=== PATIENT | female | born 1955 | race Caucasian/White ===

== ENCOUNTER 2020-07-21 04:27 | Emergency (ER) | payer OTHER ==
[2020-07-21 04:34] VITALS: BMI 23.1
[2020-07-21] MEDS ORDERED: ASPIRIN 81 MG CHEWABLE TABLETS PO ONE (04:38)
[2020-07-21] MEDS ORDERED: HEPARIN NA (PORCINE) 5,000 UNITS/ML 1ML VIAL IVPUSH PRN (04:50)
[2020-07-21 04:56] VITALS: TEMP 98.9
[2020-07-21] MEDS ORDERED: HEPARIN NA (PORCINE) 5,000 UNITS/ML 1ML VIAL IVPUSH ONE (04:56)
[2020-07-21] MEDS ORDERED: ASPIRIN COATED 81 MG TABLET.EC ONE (04:58)
[2020-07-21] MEDS ORDERED: HEPARIN NA (PORCINE) 5,000 UNITS/ML 1ML VIAL ONE (04:58)
[2020-07-21] MEDS ORDERED: TICAGRELOR 90 MG TABLET PO ONE ×3 (04:58→05:06)
[2020-07-21] MEDS ORDERED: HEPARIN INFUSION - 25,000 UNITS/500 ML INFUS.BAG IVPB ONE (04:59)
[2020-07-21] MEDS ORDERED: HEPARIN INFUSION - 25,000 UNITS/500 ML INFUS.BAG IVPB SCH (05:00)
[2020-07-21 05:24] VITALS: BP 170/88; PULSE 64
[2020-07-21] MEDS ORDERED: ONDANSETRON 4 MG/2 ML VIAL ONE (05:34)
[2020-07-21] MEDS ORDERED: ONDANSETRON 4 MG/2 ML VIAL IVPUSH ONE (05:34)
[2020-07-21 05:52] LABS: POTASSIUM 3.6 mmol/L (3.5-5.1)
[2020-07-21 05:56] LABS: ALBUMIN 4.1 g/dl (3.4-5.0); CALCIUM 9.1 mg/dL (8.5-10.1)
[2020-07-21 05:57] LABS: BLOOD UREA NITROGEN 14.4 mg/dL (7-18)
[2020-07-21 05:59] LABS: CREATININE 0.8 mg/dL (0.55-1.3)
[2020-07-21 06:01] LABS: BILIRUBIN,TOTAL 0.6 mg/dL (0.2-1); TOT PROT 7.3 g/dl (6.4-8.2)
[2020-07-21 06:38] LABS: BASO % 0.4 % (0-2.0); EOS % 0.3 % (0-4.5); HEMATOCRIT 43.8 % (32.4-45.2); HEMOGLOBIN 14.6 GM/dL (10.7-15.3); LYMPH % 15.1 % (8-40); MCH 28.2 pg (25.7-33.7); MCHC 33.4 g/dl (32.0-36.0); MEAN CELL VOLUME 84.3 fl (80-96); MEAN PLT VOLUME 8.8 fl (7.5-11.1); MONO % 5.4 % (3.8-10.2); NEUT % 78.8 % (42.8-82.8); PLATELET COUNT 337 K/MM3 (134-434); RDW 14.4 % (11.6-15.6); WHITE BLOOD COUNT 13.4 K/mm3 (4.0-10.0)
[2020-07-21] MEDS ORDERED: TICAGRELOR 90 MG TABLET PO SCH (10:00)
== END 2020-07-21 05:35 | disposition short-term general hospital (02) ==
LOC: FER 04:27
PROC: 3E033NZ Introduction of Analgesics, Hypnotics, Sedatives into Peripheral Vein, Percutaneous Approach (ICD-10-PCS; principal; 2020-07-21)
PROC: 3E033GC Introduction of Other Therapeutic Substance into Peripheral Vein, Percutaneous Approach (ICD-10-PCS; 2020-07-21)
DX: I21.3 ST elevation (STEMI) myocardial infarction of unspecified site (principal)
CPT/HCPCS: 36415; 71045-TC-FY; 80053; 82550; 84484; 85025; 93005; 99285-25; C9803; J1644; U0003

== ENCOUNTER 2022-12-09 11:44 | Emergency (ER) | payer OTHER ==
[2022-12-09 11:50] VITALS: TEMP 98.7; BMI 23.1
[2022-12-09 12:32] LABS: HEMATOCRIT 39.2 % (32.4-45.2); HEMOGLOBIN 13.3 G/dL (10.7-15.3); MCH 29.3 pg (25.7-33.7); MCHC 33.9 g/dl (32.0-36.0); MEAN CELL VOLUME 86.5 fl (80-96); MEAN PLT VOLUME 8.5 fl (7.5-11.1); PLATELET COUNT 291.6 10^3/uL (134-434); RBC 4.53 10^6/uL (3.60-5.2); RDW 14.6 % (11.6-15.6); WHITE BLOOD COUNT 13.7 10^3/uL (4.0-10.8)
[2022-12-09 12:47] LABS: ALBUMIN 4.2 g/dl (3.4-5.0); BILIRUBIN,TOTAL 0.4 mg/dl (0.2-1); BLOOD UREA NITROGEN 12.8 mg/dl (7-18); CALCIUM 9.3 mg/dl (8.5-10.1); CREATININE 0.7 mg/dl (0.6-1.3); POTASSIUM 4.3 mmol/L (3.5-5.1); SGPT/ALT 9.3 U/L (7-52); TOT PROT 6.7 g/dl (6.4-8.2)
[2022-12-09 12:49] LABS: EPITHELIAL CELLS FEW /hpf
[2022-12-09 13:03] LABS: PLATELET ESTIMATE ADEQUATE
[2022-12-09] MEDS ORDERED: AMOX TR/POT CLAV 875MG/125MG TABLETS (FP) PO ONE (14:27)
[2022-12-09] MEDS ORDERED: AMOX TR/POT CLAV 875MG/125MG TABLETS (FP) ONE (14:33)
[2022-12-09 14:47] VITALS: BP 158/68; PULSE 79; RESP 18
== END 2022-12-09 14:45 | disposition home or self-care (01) ==
LOC: FER 11:44
DX: R10.2 Pelvic and perineal pain (principal); K57.92 Diverticulitis of intestine, part unspecified, without perforation or abscess without bleeding
CPT/HCPCS: 36415; 74176-TC; 76830-TC; 80053; 81003; 81015; 85027; 87086; 99285-25